=== PATIENT | female | born 1950 | race Asian ===

== ENCOUNTER 2023-01-22 16:00 | Day surgery (SDC) | payer MEDICARE, OTHER ==
[2023-01-22] MEDS ORDERED: traMADol 50 MG TABLET PO STA (16:21)
[2023-01-22] MEDS ORDERED: PROPARACAINE 0.5% OPHTH DROPS 15 ML ONE (16:21)
--- NOTE | 2023-01-22 16:24 | ED Physician Documentation ---
PD HPI OPHTHO - Stated complaint Stated Complaint: FB LT EYE - Chief complaint Chief Complaint: Heent - History obtained from History obtained from: Patient, Family - History of Present Illness Timing - onset: How many minutes ago (20) Timing - duration: Minutes (20) Timing - details: Abrupt onset Pain level max: 7 Pain level now: 7 Location: Left Contributing factors: FB - Additional information Additional information: 72-year-old female was walking in the [place] when she tripped and fell landing on a stick that became lodged in her left upper eyelid. Unable to open her eye. Worse with movement, nothing makes it better. Td unknown Review of Systems Constitutional: denies: Fever, Chills GI: denies: Vomiting, Diarrhea : denies: Dysuria Skin: denies: Rash Musculoskeletal: denies: Neck pain, Back pain Neurologic: denies: Headache PD PAST MEDICAL HISTORY - Past Medical History Past Medical History: Yes Cardiovascular: Hypertension - Present Medications Home Medications: Ambulatory Orders Medication Instructions Recorded Confirmed Acetaminophen [Tylenol Extra 500 mg PO ONCE #1 packet 01/22/23 Strength] Metoprolol Succinate [Toprol Xl] 25 mg PO DAILY 01/22/23 01/22/23 Olmesartan Medoxomil [Benicar] 20 mg PO DAILY 01/22/23 01/22/23 - Allergies Allergies/Adverse Reactions: Allergies Allergy/AdvReac Type Severity Reaction Status Date / Time oxycodone Allergy Rash Verified 01/22/23 16:12 - Living Situation Living Situation: reports: With family Living Arrangement: reports: At home - Family History Family history: reports: Non contributory - Immunizations Immunizations: TDAP >10years/unknown PD ED PE NORMAL - Vitals Vital signs reviewed: Yes - General General: Alert and oriented X 3, No acute distress - HEENT HEENT: PERRL, Moist mucous membranes, Other (0.5cm diameter wooden stick to the medial aspect of the left upper eyelid. She is able to move the eyeball itself under the eyelid without moving the stick. She states her vision is normal. Intraocular pressure is 20-22.) - Neck Neck: Supple, no meningeal sign - Cardiac Cardiac: RRR - Respiratory Respiratory: No respiratory distress, Clear bilaterally - Derm Derm: Warm and dry - Neuro Neuro: Alert and oriented X 3 Results - Vitals Vitals: Vital Signs - 24 hr 01/22/23 01/22/23 01/22/23 16:09 16:47 18:02 Temperature 36.6 C Heart Rate 78 70 70 Respiratory 20 20 22 Rate Blood Pressure 195/108 H 187/90 H O2 Saturation 98 99 99 01/22/23 01/22/23 01/22/23 19:18 19:20 19:34 Temperature 36.7 C Heart Rate 79 78 84 Respiratory 16 16 16 Rate Blood Pressure 154/90 H 161/91 H 163/85 H O2 Saturation 94 96 96 01/22/23 01/22/23 01/22/23 20:20 20:26 20:33 Temperature Heart Rate 77 77 74 Respiratory 13 14 Rate Blood Pressure 160/102 H 161/87 H 152/91 H O2 Saturation 92 90 L 01/22/23 20:48 Temperature Heart Rate 85 Respiratory 16 Rate Blood Pressure 168/88 H O2 Saturation 95 Oxygen O2 Source Room air - Rads (name of study) CT orbits Relevant Findings:: Final report received, See rad report PD Medical Decision Making - ED course Complexity details: reviewed results, re-evaluated patient, considered differential, d/w patient, d/w financial management consultant ED course: 72-year-old female presents to the emergency department with a portion of a tree branch/stick to the left upper eyelid, medial aspect. Intraocular pressure is normal. Vision is normal. CT scan reveals that the stick goes approximately 5 and half centimeters to the back of the orbit. Contacted ophthalmology, Dr. Hitchcock, he will come and evaluate the patient, plan to remove in the OR. An IV was started. Ancef was given. Tetanus was updated. 1. Extraconal left orbital linear foreign body situated between the intact lamina papyracea and medial rectus muscle terminates in the superior oblique muscle belly at the level of the mid orbit Departure - Departure Disposition: ED Transfer to [facility] Clinical Impression: Foreign body of left orbit Qualifiers: Encounter type: initial encounter Qualified Code(s): S05.42XA - Penetrating wound of orbit with or without foreign body, left eye, initial encounter Condition: Stable Discharge Date/Time: 01/22/23 19:02
[2023-01-22] MEDS ORDERED: MORPHINE 2 MG/ML CARPUJECT IVP STA (17:04)
[2023-01-22] MEDS ORDERED: SODIUM CHLORIDE 0.9% 1,000 ML IV STA (17:04)
[2023-01-22] MEDS ORDERED: ceFAZolin 1 GM in SODIUM CHLORIDE 0.9% MINIBAG 100 ML IV STA (17:04)
[2023-01-22] MEDS ORDERED: TETANUS/DIPHTHERIA/PERTUSSIS 0.5 ML SYRINGE IM ONE (17:05)
--- NOTE | 2023-01-22 17:35 | CT Report ---
PROCEDURE: CT orbits INDICATIONS: FB L upper eyelid TECHNIQUE: Noncontrast 2.0 mm axial images acquired through the orbits. For radiation dose reduction, the follo wing was used: automated exposure control, adjustment of mA and/or kV according to patient size. COMPARISON: None FINDINGS: Image quality: Excellent. Orbits: Linear foreign body extends through the medial canthus of the left orbit medial to the globe and remains between the lamina papyracea and medial rectus. Foreign body terminates in the muscle be lly of the superior oblique extraocular muscle at the level of the mid orbit. Small amount of soft ti ssue air present. Lamina papyracea intact Otherwise, globes are symmetrical. The optic nerves are normal in size. No retrobulbar masses or fa t abnormalities. Lacrimal glands are normal in size. Optic chiasm is normal. Intracranial: Visualized portions of the cerebral hemispheres, brainstem, and spinal cord are normal . Bones and sinuses: Visualized calvarium and facial bones appear intact. Visualized sinuses and mast oids are clear. IMPRESSION: 1. Extraconal left orbital linear foreign body situated between the intact lamina papyracea and media l rectus muscle terminates in the superior oblique muscle belly at the level of the mid orbit Reviewed by: Migeul Linares MD on 01/22/2023 4:34 PM ADAM Approved by: Miguel Linares MD on 01/22/2023 4:34 PM AKDT Station ID: [id number]
[2023-01-22] MEDS ORDERED: ONDANSETRON 4 MG/2 ML VIAL ONE (17:52)
[2023-01-22] MEDS ORDERED: PROPOFOL 200 MG/20 ML VIAL IVP ONE (17:58)
[2023-01-22] MEDS ORDERED: fentaNYL 100 MCG/2 ML VIAL ONE (17:59)
[2023-01-22] MEDS ORDERED: TRIAMCIN/MOXIFLOX OPHTHALMIC 0.6 ML VIAL IO ONE (18:02)
[2023-01-22] MEDS ORDERED: VANCOMYCIN OPHTH (TOPICAL) 10 MG/ML SYRINGE ONE (18:03)
[2023-01-22] MEDS ORDERED: BSS/LIDOCAINE/EPINEPHRINE 1 ML VIAL ONE (18:03)
[2023-01-22] MEDS ORDERED: TIMOLOL 0.5% OPHTH DROPS ONE (18:03)
[2023-01-22] MEDS ORDERED: BRIMONIDINE 0.2% OPHTH DROPS 5 ML ONE (18:03)
[2023-01-22] MEDS ORDERED: EPINEPHrine 1 MG/ML AMP ONE (18:03)
--- NOTE | 2023-01-22 18:09 | ANESTHESIA ---
Pre-Anesthesia VS, & Labs - Diagnosis FB Left orbit - Procedure Removal of FB left orbit Vital Signs: Temp Pulse Resp BP Pulse Ox O2 Flow Rate 36.6 C 70 22 187/90 H 99 01/22/23 16:09 01/22/23 18:02 01/22/23 18:02 01/22/23 18:02 01/22/23 18:02 Height: 5 ft 6 in Weight (kg): 68.039 kg Body Mass Index: 24.2 BMI Classification: Normal - NPO Last Food Intake: 1200- sandwich - Is Patient ?: No Home Medications and Allergies Home Medications: Ambulatory Orders Metoprolol Succinate [Toprol Xl] 25 mg PO DAILY 01/22/23 Olmesartan Medoxomil [Benicar] 20 mg PO DAILY 01/22/23 Active Medications Sodium Chloride (Normal Saline 0.9%) 1,000 mls @ 150 mls/hr IV .Q6H40M STA Stop: 01/22/23 23:43 Metoprolol Succinate [Toprol Xl] 25 mg PO DAILY 01/22/23 Olmesartan Medoxomil [Benicar] 20 mg PO DAILY 01/22/23 Baby ASA Allergies/Adverse Reactions: Allergies Allergy/AdvReac Type Severity Reaction Status Date / Time oxycodone Allergy Rash Verified 01/22/23 16:12 Anes History & Medical History - Anesthetic History Anesthesia Complications: reports: Other-see comment (post op shivering, had episode of afib after hysterectomy) - Medical History Cardiovascular: reports: Hypertension, Atrial fibrillation (reports her last visit with cardiology in October indicated no issues. Said her ECHO was "good") Pulmonary: reports: None Gastrointestinal: reports: GERD Urinary: reports: None Neuro: reports: None Musculoskeletal: reports: None Endocrine/Autoimmune: reports: None Blood Disorders: reports: None Skin: reports: None Smoking Status: Never smoker Psychosocial: reports: No issues indicated History of Cancer?: Yes (endometrial cancer s/p radiation) - Surgical History Gynecologic: reports: Hysterectomy Orthopedic: reports: Hip replacement (merlyn.) Exam General: Alert, Oriented x3, Cooperative, No acute distress Dental: WNL Mouth Openin Fingerbreadth Neck Mobility: Normal Mallampati classification: II Thyromental Distance: 4-6 cm Mental/Cognitive Status: Alert/Oriented X3, Normal for patient Plan Anesthesia Type: General Consent for Procedure(s) Verified and Reviewed: Yes Code Status: Attempt Resuscitation ASA classification: 2-Mild systemic disease Is this case an emergency?: Yes
[2023-01-22] MEDS ORDERED: ONDANSETRON 4 MG/2 ML VIAL IVP PRN (18:11)
[2023-01-22] MEDS ORDERED: ATROPINE ABBOJECT 1 MG/10 ML SYRINGE IVP PRN (18:11)
[2023-01-22] MEDS ORDERED: HYDROmorphone 0.5 MG/0.5 ML SYRINGE IVP PRN (18:11)
[2023-01-22] MEDS ORDERED: MORPHINE 2 MG/ML CARPUJECT IVP PRN (18:11)
[2023-01-22] MEDS ORDERED: NALOXONE 0.4 MG/ML VIAL IVP PRN (18:11)
[2023-01-22] MEDS ORDERED: fentaNYL 100 MCG/2 ML VIAL IVP PRN (18:11)
[2023-01-22] MEDS ORDERED: LIDOCAINE MPF 2%-EPI 1:200000 20 ML VIAL ONE (18:39)
[2023-01-22] MEDS ORDERED: BUPIVACAINE 0.25% PF 30 ML VIAL ONE (18:39)
[2023-01-22] MEDS ORDERED: MIDAZOLAM 2 MG/2 ML VIAL ONE ×2 (18:46→19:00)
[2023-01-22] MEDS ORDERED: LACTATED RINGERS 1,000 ML IV SCH (19:00)
[2023-01-22] MEDS ORDERED: BUPIVACAINE 0.25% PF 30 ML VIAL SUBQ ONE (19:07)
[2023-01-22] MEDS ORDERED: LIDOCAINE 2%-EPI 1:100000 20 ML MDV SUBQ ONE (19:07)
[2023-01-22] MEDS ORDERED: SODIUM CHLORIDE 0.9% 1,000 ML IV ONE (19:18)
[2023-01-22] MEDS ORDERED: iohexoL-300 100 ML VIAL ONE (20:02)
--- NOTE | 2023-01-22 20:20 | OPERATIVE REPORT ---
Operative Report - General Procedure Date: 01/22/23 Planned Procedure: Foreign body removal left orbit. Date of Surgery: 01/22/23 Preop Dx: Organic foreign body (tree branch) left orbit, nasally. Postop Dx: Same Procedure: Removal of orbital foreign body left orbit. Surgeon: Dr. Marcio Hitchcock Anesthesia: Monitored anesthesia care Complications: None Operative Indications: This is a 72-year-old F who earlier today fell while hiking alone and struck a plant or tree impaling her left orbit. She did not immediately realize what had occurred until she could not get her eyeglasses on. She then called her to come get her and take her to the ED. An end of the branch was exterior but she did not remove it. Opening her eyelid was painful but she did note that her vision seemed normal and she did not notice any diplopia. In the ED she was noted to have a piece of plant/tree branch sticky out from her medial canthal area and upper eyelid echymosis. Vision was grossly normal and IOP was measured to be [address] was ordered which showed lucency along the nasal wall of the orbit between the medial rectus and superior rectus muscle but not impacting the muscles, or globe, or the retrobulbar optic nerve. There was no sign of retrobulbar hemorrhage or of a rupture of the ethmoid sinus wall. The patient was consented at length concerning the risks of removing the foreign body from the orbit, to include bleeding due to damage to arteries or veins near the tract, and/or damage to nearby nerves, muscles, or tendons. Retrobulbar bleeding that is not treated immediately could result in loss of vision due to damage to the optic nerve. There is a high risk that the foreign body introduced bacteria or fungus which will need to be managed in both the short and care home. There is a risk of double vision if ocular muscles or nerves are damaged. The foreign body has to be removed and benefits of surgery are decreased risk of infection, or orbital structural damage, and decreased in pain. The patient understood the risks of the procedure and expressed a desire to proceed with surgery. Operative Procedure: The patient was taken into OR#3 and placed under monitored anesthesia care. A surgical time-out was conducted confirming correct patient, correct procedure, and correct surgical site. Local anesthesia was obtained using a mixture of 2% lidocaine and 0.25% marcaine with epinephrine injected subcutaneously and then nasally along the foreign body tract using a 1 inch long needle. The site was then prepped using betadine swabs around the puncture site. A #15 blade was used to open the medial canthal skin superficially and then the object was slowly withdrawn anteriorly hugging the medial wall of the orbit. Extraction was smooth until just before exiting the wound. There was a small bard on the tip of the stick that had likely caught on the obtital septal wall upon exiting. The intraorbital portion of the foreign body was about 2 inches (the stick was given to the who had requested keeping it before the surgery). Two very small fragments of wood were retrieved from the wound opening. Bleeding was mild for about 5 minutes and then stopped. Upon probing with 0.12 forceps the tract could not be found. The wound was sterilized with a betadine swab and the area rinsed with sterile BSS. The wound was left open. The patient's eye grounds appeared normal and eye movements appeared to be intact (the pt was still very sedated). The patient was taken from the operating room in good condition and given post-op instructions. She was in much less pain than before surgery. A CT of the orbits with contrast was ordered looking for an immediate post-op retrobulbar bleed. Her was given scripts for Augmentin and Bactrim to take bid for 7 days starting tonight. They will call the eye clinic in the morning to be seen tomorrow in [place] for follow-up.
[2023-01-22 20:48] VITALS: BP 168/88
--- NOTE | 2023-01-22 20:49 | CT Report ---
PROCEDURE: ORBITS W INDICATIONS: FB removal TECHNIQUE: Contrast-enhanced 2.0 mm axial images acquired through the orbits. For radiation dose redu ction, the following was used: automated exposure control, adjustment of mA and/or kV according to pa tient size. Intravenous contrast was used. COMPARISON: Same-day CT FINDINGS: Orbits: Interval removal of the radiolucent foreign body in the medial orbit. There is some edema in the region, mostly extraconal, between the medial rectus of the superior oblique muscle. There is als o superficial periorbital edema and gas. Some gas also extends to the extraconal space. No definite r adiopaque foreign body remaining. Possible small remaining foreign body at the superior oblique muscle versus a remnant focus of gas () The right orbit is unremarkable. The intraconal space is unremarkable. Normal sphericity of the globe s bilaterally. No abscess or hematoma. Intracranial: Unremarkable, partially visualized. Bones and sinuses: No displaced fracture. Small mucous retention cyst in the sinuses. Mastoids are cl ear. IMPRESSION: Interval removal of her linear radiolucent foreign body in the medial orbit. At the tract, there is e drew and gas in the periorbital preseptal space and extraconal space, particularly between the medial rectus and superior oblique muscle. Possible 2 mm small remaining foreign body at the superior obliq ue muscle versus a remnant focus of gas (01/25) measuring 2 to 3 mm, differentiation is difficult give n that the original foreign body was similar to the attenuation of gas, possibly wooden. No remaining radiodense bodies identified. Reviewed by: Irving Martinez MD on 01/22/2023 8:48 PM PDT Approved by: Irving Martinez MD on 01/22/2023 8:48 PM PDT Station ID: [id number]
[2023-01-22] MEDS ORDERED: ACETAMINOPHEN 325 MG TABLET PO ONE (20:57)
[2023-01-22] MEDS ORDERED: ACETAMINOPHEN 325 MG TABLET PO SCH (21:00)
[2023-01-22] MEDS ORDERED: iohexoL-300 100 ML VIAL IVP ONE (21:16)
--- NOTE | 2023-01-24 07:15 | ANESTHESIA POST OP EVALUATION ---
Anesthesia Post Eval - Post Anesthesia Eval Vitals: Last Vital Signs Temp 36.7 C 01/22/23 19:18 Pulse 85 01/22/23 20:48 Resp 16 01/22/23 20:48 BP 168/88 H 01/22/23 20:48 Pulse Ox 95 01/22/23 20:48 O2 Flow Rate CV Function Including HR & BP: Stable Pain Control: Satisfactory Nausea & Vomiting: Negative Mental Status: Baseline Respiratory Status: Airway Patent Hydration Status: Satisfactory Anesthesia Complications: None
== END 2023-01-22 21:15 | disposition home or self-care (01) ==
LOC: ED 16:00 → SDS 18:49 → MS2 19:39 → SDS 21:15
PROVIDERS: ATTEND Ophthalmology
PROC: 0NC Head and Facial Bones, Extirpation (ICD-10-PCS; principal; 2023-01-22 18:00)
DX: S05.42XA Penetrating wound of orbit with or without foreign body, left eye, initial encounter (principal); I10 Essential (primary) hypertension; W18.30XA Fall on same level, unspecified, initial encounter; Y93.01 Activity, walking, marching and hiking; Y92.821 Forest as the place of occurrence of the external cause; Z23 Encounter for immunization
CPT/HCPCS: 67413; 70480; 70481; 90471; 90715; 96365; 96375; 99284; 99285; A9270; J3490; Q9967